=== PATIENT | female | born 1995 | race Caucasian/White ===

== ENCOUNTER 2021-04-07 10:26 | Emergency (ER) | payer BC ==
[2021-04-07] MEDS ORDERED: Ondansetron 4 MG Tab.DIS PO ONE (10:29)
[2021-04-07] MEDS ORDERED: Ondansetron 4 MG/2 ML SDV IVPUSH ONE (11:22)
--- NOTE | 2021-04-07 11:25 | EDM.PDOC ---
ED HPI GENERAL MEDICAL PROBLEM - General Chief Complaint: General Stated Complaint: VOMITTING Time Seen by Provider: 04/07/21 11:14 Source of Information: Reports: Patient, Family History Limitations: Reports: No Limitations - History of Present Illness INITIAL COMMENTS - FREE TEXT/NARRATIVE: 25 yo female presents with 10 hours of nausea and vomiting following a night of increased alcohol use. She c/o of ABD cramping. She has been unable to tolerate oral intake all morning. LMP is current and she is on last day. generally healthy - Related Data Allergies Allergy/AdvReac Type Severity Reaction Status Date / Time No Known Allergies Allergy Verified 04/07/21 11:10 Home Meds: Home Meds NK [No Known Home Meds] 04/07/21 [History] Past Medical History - Past Health History Medical/Surgical History: Denies Medical/Surgical History Social & Family History - Tobacco Use Tobacco Use Status *Q: Never Tobacco User ED ROS GENERAL - Review of Systems Review Of Systems: See Below Constitutional: Denies: Fever, Chills, Fatigue Respiratory: Denies: Shortness of Breath, Wheezing Cardiovascular: Denies: Chest Pain GI/Abdominal: Reports: Abdominal Pain, Nausea, Vomiting ED EXAM, GENERAL - Physical Exam Exam: See Below Exam Limited By: No Limitations General Appearance: Alert, WD/WN, Mild Distress Respiratory/Chest: No Respiratory Distress, Lungs Clear, Normal Breath Sounds, No Accessory Muscle Use. No: Crackles, Rhonchi, Wheezing Cardiovascular: Regular Rate, Rhythm, No Murmur GI/Abdominal: Soft, Tender (generalized) Course - Vital Signs Last Recorded V/S: Last Vital Signs Temp 36.4 C 04/07/21 11:14 Pulse 91 04/07/21 11:14 Resp 18 04/07/21 11:14 BP 123/78 04/07/21 11:14 Pulse Ox 99 04/07/21 11:14 - Orders/Labs/Meds Orders: Active Orders 24 hr Category Date Time Status Sodium Chloride 0.9% [Normal Saline] 1,000 ml Med 04/07/21 11:30 Active IV ASDIRECTED Medication Orders Sodium Chloride (Normal Saline) 1,000 mls @ 999 mls/hr IV ASDIRECTED ALEKSANDR Last Admin: 04/07/21 11:58 Dose: 999 mls/hr Documented by: SARAH Meds: Medications Generic Name Dose Route Start Last Admin Trade Name Freq PRN Reason Stop Dose Admin Sodium Chloride 1,000 mls @ 999 mls/hr 04/07/21 11:30 04/07/21 11:58 Normal Saline IV 999 mls/hr ASDIRECTED ALEKSANDR Administration Discontinued Medications Generic Name Dose Route Start Last Admin Trade Name Jahaira PRN Reason Stop Dose Admin Sodium Chloride 1,000 mls @ 500 mls/hr 04/07/21 13:15 Normal Saline IV ASDIRECTED ALEKSANDR Metoclopramide HCl 5 mg 04/07/21 12:16 04/07/21 12:23 Metoclopramide 10 Mg/2 Ml Sdv IVPUSH 04/07/21 12:17 5 mg ONETIME ONE Administration Metoclopramide HCl Confirm 04/07/21 12:16 Metoclopramide 10 Mg/2 Ml Sdv Administered 04/07/21 12:17 Dose 10 mg .ROUTE .STK-MED ONE Ondansetron HCl 4 mg 04/07/21 10:29 Ondansetron 4 Mg Tab.Dis PO 04/07/21 10:30 ONETIME ONE Ondansetron HCl 4 mg 04/07/21 11:22 04/07/21 11:58 Ondansetron 4 Mg/2 Ml Sdv IVPUSH 04/07/21 11:23 4 mg ONETIME ONE Administration Prochlorperazine Maleate 10 mg 04/07/21 13:13 Prochlorperazine 10 Mg Tab PO 04/07/21 13:14 ONETIME ONE - Re-Assessments/Exams Free Text/Narrative Re-Assessment/Exam: 04/07/21 13:07 received antiemetics and fluids. will discharge on compazine 04/07/21 13:12 Departure - Departure Time of Disposition: 13:16 Disposition: Home, Self-Care 01 Clinical Impression: Gastroenteritis Alcohol intoxication Qualifiers: Complication of substance-induced condition: uncomplicated Qualified Code(s): F10.920 - Alcohol use, unspecified with intoxication, uncomplicated - Discharge Information *PRESCRIPTION DRUG MONITORING PROGRAM REVIEWED*: Not Applicable *COPY OF PRESCRIPTION DRUG MONITORING REPORT IN PATIENT EDILSON: Not Applicable Instructions: Alcohol Intoxication, [id number] Referrals: PCP,None [Primary Care Provider] - Forms: ED Department Discharge Additional Instructions: sips of fluid and bland diet of small meals compazine 10 mg every 8 hours as needed rest Sepsis Event Note (ED) - Evaluation Sepsis Screening Result: No Definite Risk - Focused Exam Vital Signs: Vital Signs Temp Pulse Resp BP Pulse Ox 04/07/21 11:14 36.4 C 91 18 123/78 99 04/07/21 11:03 36.4 C 91 18 123/78 99 - My Orders Last 24 Hours: My Active Orders 04/07/21 11:30 Sodium Chloride 0.9% [Normal Saline] 1,000 ml IV ASDIRECTED - Assessment/Plan Last 24 Hours: My Active Orders 04/07/21 11:30 Sodium Chloride 0.9% [Normal Saline] 1,000 ml IV ASDIRECTED
[2021-04-07] MEDS ORDERED: Sodium Chloride 0.9% 1,000 ML IV SCH ×2 (11:30→13:15)
[2021-04-07] MEDS ORDERED: Metoclopramide 10 MG/2 ML SDV IVPUSH ONE (12:16)
[2021-04-07] MEDS ORDERED: Metoclopramide 10 MG/2 ML SDV ONE (12:16)
[2021-04-07] MEDS ORDERED: Prochlorperazine 10 MG Tab PO ONE (13:13)
== END 2021-04-07 13:46 | disposition home or self-care (01) ==
LOC: JP.ED 10:26
DX: K52.9 Noninfective gastroenteritis and colitis, unspecified (principal); F10.120 Alcohol abuse with intoxication, uncomplicated
CPT/HCPCS: 96374; 96375; 99283; J2405; J2765; J7030